=== PATIENT | female | born 1995 | race Caucasian/White ===

== ENCOUNTER 2017-04-08 17:52 | Emergency (ER) | payer SELFPAY ==
[2017-04-08 18:02] VITALS: BMI 20.9
[2017-04-08 18:08] VITALS: TEMP 98.7
--- NOTE | 2017-04-08 19:17 | ED PDOC ---
Arrival/HPI - General Historian: Patient - General Chief Complaint: Dizziness/Lightheaded Time Seen by Provider: 04/08/17 19:11 - History of Present Illness Narrative History of Present Illness (Text): 04/08/17 19:12 22 y/o female, no significant pmh, nkda, LMP , , c/o just noted to have positive at home and stated that she has been feeling nauseous and fatigue x 1 day. Pt. stated that she has no vaginal bleeding or discharge, no pelvic pain, no abdominal pain, no palpitation, no vaginal bleeding or discharge, no rash, no numbness or tingling, no coughing, no flank pain, no other medical or psychological complaints. (Mickey Phillips) Past Medical History - Provider Review Nursing Documentation Reviewed: Yes - Infectious Disease Hx of Infectious Diseases: None - Psychiatric Hx Substance Use: No Family/Social History - Physician Review Nursing Documentation Reviewed: Yes Family/Social History: Unknown Family HX Smoking Status: Never Smoked Hx Alcohol Use: No Hx Substance Use: No Allergies/Home Meds Allergies/Adverse Reactions: Allergies No Known Allergies Allergy (Verified 04/08/17 18:02) Review of Systems - Review of Systems Constitutional: Fatigue. absent: Fevers Eyes: absent: Vision Changes ENT: absent: Hearing Changes Respiratory: absent: SOB, Cough Cardiovascular: absent: Chest Pain Gastrointestinal: absent: Abdominal Pain, Nausea, Vomiting Musculoskeletal: absent: Arthralgias, Back Pain Skin: absent: Rash, Pruritis Neurological: absent: Headache Psychiatric: absent: Anxiety, Depression Physical Exam Vital Signs Reviewed: Yes Temperature: Afebrile Blood Pressure: Normal Pulse: Regular Respiratory Rate: Normal Appearance: Positive for: Well-Appearing, Non-Toxic, Comfortable Pain Distress: None Mental Status: Positive for: Alert and Oriented X 3 - Systems Exam Head: Present: Atraumatic, Normocephalic Pupils: Present: PERRL Extroacular Muscles: Present: EOMI Conjunctiva: Present: Normal Mouth: Present: Moist Mucous Membranes Neck: Present: Normal Range of Motion Respiratory/Chest: Present: Clear to Auscultation, Good Air Exchange. No: Respiratory Distress, Accessory Muscle Use Cardiovascular: Present: Regular Rate and Rhythm, Normal S1, S2. No: Murmurs Abdomen: Present: Normal Bowel Sounds. No: Tenderness, Distention, Peritoneal Signs, Rebound, Guarding Back: Present: Normal Inspection Upper Extremity: Present: Normal Inspection. No: Cyanosis, Edema Lower Extremity: Present: Normal Inspection. No: Edema Neurological: Present: GCS=15, Speech Normal, Motor Func Grossly Intact, Gait Normal, Memory Normal Skin: Present: Warm, Dry, Normal Color. No: Rashes Psychiatric: Present: Alert, Oriented x 3, Normal Insight, Normal Concentration Vital Signs Temp Pulse Resp BP Pulse Ox 04/08/17 20:29 76 18 121/70 99 04/08/17 17:54 98.7 F 92 H 16 113/75 97 Medical Decision Making ED Course and Treatment: 04/08/17 19:18 -labs/ua/rapid flu -observe and reassess 04/08/17 20:03 -Labs are non-significant -Beta HCG > 15,000 -UA show no UTI -Rapid flu screening is negative, clinically no signs of flu like symptoms and no URI symptoms, no bodyaches either. -Pt. feels well, eating and drinking well in the ER except feeling nauseous since , will give diclegis. -Discharge home with diclegis, follow up with your own pmd and obgyn within 2 days, return to the ER for any new or worsening signs or symptoms. (Mickey Phillips) - Lab Interpretations Lab Results: 04/08/17 18:30 04/08/17 18:30 Lab Results 04/08/17 18:30: Beta HCG, Quant 25298.00 H 04/08/17 18:30: Sodium 138, Potassium 3.8, Chloride 103, Carbon Dioxide 22, Anion Gap 17, BUN 8, Creatinine 0.5 L, Est GFR ( Amer) > 60, Est GFR (Non -Af Amer) > 60, Random Glucose 82, Calcium 10.0, Total Bilirubin 0.4, AST 29, ALT 27, Alkaline Phosphatase 40, Total Protein 8.1, Albumin 4.5, Globulin 3.6, Albumin/Globulin Ratio 1.3 04/08/17 18:30: Urine Color Yellow, Urine Appearance Clear, Urine pH 6.0, Ur Specific [place] >= 1.030, Urine Protein Trace H, Urine Glucose (UA) Negative, Urine Ketones 40 H, Urine Blood Trace-intact H, Urine Nitrate Negative, Urine Bilirubin Small H, Urine Urobilinogen 1.0 H, Ur Leukocyte Esterase Negative, Urine RBC 2 - 5, Urine WBC 0 - 2, Ur Epithelial Cells 4 - 5, Amorphous Sediment Few, Urine Bacteria Many 04/08/17 18:30: Influenza Typ A,B (EIA) Negative for flu a/b 04/08/17 18:30: WBC 10.2, RBC 4.43, Hgb 12.3, Hct 36.5, MCV 82.4, MCH 27.8, MCHC 33.7, RDW 13.6, Plt Count 222, MPV 12.0 H, Gran % 74.2 H, Lymph % (Auto) 18.2 L, [place] % (Auto) 7.3 H, Eos % (Auto) 0.2 L, Baso % (Auto) 0.1, Gran # 7.57 H, Lymph # 1.9, [place] # 0.7 H, Eos # 0.0, Baso # 0.01 - PA / [employer]UP EXPANDER / Resident Statement MD/DO has reviewed & agrees with the documentation as recorded. Disposition/Present on Arrival - Present on Arrival Any Indicators Present on Arrival: No History of DVT/PE: No History of Uncontrolled Diabetes: No Urinary Catheter: No History of Decub. Ulcer: No History Surgical Site Infection Following: None - Disposition Have Diagnosis and Disposition been Completed?: Yes Disposition Time: 19:18 Patient Plan: Discharge - Disposition Diagnosis: , Nauseous Disposition: HOME/ ROUTINE Condition: GOOD Additional Instructions: -Discharge home with diclegis, follow up with your own pmd and obgyn within 2 days, return to the ER for any new or worsening signs or symptoms. Prescriptions: Doxylamine/Pyridoxine HCl (B6) [Diclegis 10 mg-10 mg] 1 tcp PO QPM PRN #[id number] PRN Reason: Other Referrals: [facility] [place] [Outside] - Follow up with primary Kenzie Suazo MD [Staff Provider] - Follow up with primary Forms: WORK NOTE
[2017-04-08 19:48] LABS: BASO # 0.01 K/mm3 (0.0-2.0); BASO % 0.1 % (0.0-3.0); EOS % 0.2 % (1.5-5.0); GRAN # 7.57 (1.4-6.5); GRAN % 74.2 % (50.0-68.0); HEMOGLOBIN 12.3 g/dL (12.0-16.0); LYMPH # 1.9 (1.2-3.4); LYMPH % 18.2 % (22.0-35.0); MEAN CELL VOLUME 82.4 fl (80.0-105.0); MEAN CORPUSCULAR HEMOGLOBIN 27.8 pg (25.0-35.0); MEAN CORPUSCULAR HGB CONC 33.7 g/dl (31.0-37.0); MONO # 0.7 (0.1-0.6); MONO % 7.3 % (1.0-6.0); RBC 4.43 10^6/uL (3.5-6.1); RED CELL DISTRIBUTION WIDTH 13.6 % (11.5-14.5); URINE BILIRUBIN SMALL (NEGATIVE); URINE BLOOD TRACE-INTACT (NEGATIVE); URINE GLUCOSE (UA) NEGATIVE (NEGATIVE); URINE LEUKOCYTE ESTERASE NEGATIVE Leu/uL (NEGATIVE); URINE NITRATE NEGATIVE (NEGATIVE); URINE PROTEIN TRACE mg/dL (<30 mg/dL); WHITE BLOOD COUNT 10.2 10^3/ul (4.5-11.0)
[2017-04-08 19:51] LABS: URINE APPEARANCE CLEAR (CLEAR); URINE COLOR YELLOW (YELLOW)
[2017-04-08 19:54] LABS: URINE BACTERIA MANY (NEG); URINE WBC 0 - 2 /hpf (0-6)
[2017-04-08 19:55] LABS: URINE AMORPHOUS SEDIMENT FEW
[2017-04-08 19:58] LABS: ALB/GLOB RATIO 1.3 (1.1-1.8); ALBUMIN 4.5 g/dL (3.0-4.8); ALT/SGPT 27 U/L (7-56); AST/SGOT 29 U/L (14-36); BLOOD UREA NITROGEN 8 mg/dL (7-21); GFR AFRICAN-AMERICAN > 60; GFR NON-AFRICAN AMERICAN > 60
[2017-04-08 20:29] VITALS: BP 121/70; PULSE 76; RESP 18; O2SAT 99
== END 2017-04-08 20:33 | disposition home or self-care (01) ==
LOC: ED 17:52
DX: O26.891 Other specified pregnancy related conditions, first trimester (principal); R11.0 Nausea; Z3A.00 Weeks of gestation of pregnancy not specified

== ENCOUNTER 2017-04-26 04:54 | Emergency (ER) | payer SELFPAY ==
[2017-04-26 04:55] VITALS: BMI 20.9
--- NOTE | 2017-04-26 06:33 | ED PDOC ---
Arrival/HPI - General Chief Complaint: Female Genitourinary Time Seen by Provider: 04/26/17 06:16 Historian: Patient - History of Present Illness Narrative History of Present Illness (Text): 04/26/17 06:30 Radha Walsh is a 22 year old female, P:0, approximately 10 weeks , who presents to the ED accompanied by spouse of abdominal cramping with occasional bright red vaginal spotting today. Patient denies any vaginal spotting currently. Patient denies any fever, chills, vomiting, diarrhea, back pain, urinary symptoms, or any other complaints. states patient last saw her OBGYN 3 weeks prior, was told everything was fine, and placed on pre- vitamins. Time/Duration: Other (today) Symptom Onset: Gradual Symptom Course: Unchanged Activities at Onset: Light Context: Home Past Medical History - Provider Review Nursing Documentation Reviewed: Yes - Infectious Disease Hx of Infectious Diseases: None - Psychiatric Hx Substance Use: No Family/Social History - Physician Review Nursing Documentation Reviewed: Yes Family/Social History: Unknown Family HX Smoking Status: Never Smoked Hx Alcohol Use: No Hx Substance Use: No Allergies/Home Meds Allergies/Adverse Reactions: Allergies No Known Allergies Allergy (Verified 04/08/17 18:02) Home Medications: Home Meds Medication Instructions Recorded Confirmed No Known Home Med 04/26/17 04/26/17 Review of Systems - Physician Review All systems were reviewed & negative as marked: Yes - Review of Systems Constitutional: Normal. absent: Fevers Eyes: Normal ENT: Normal Respiratory: Normal. absent: SOB, Cough Cardiovascular: Normal. absent: Chest Pain Gastrointestinal: Abdominal Pain. absent: Diarrhea, Vomiting Genitourinary Female: Vaginal Bleeding. absent: Dysuria, Frequency, Hematuria, Urine Output Changes Musculoskeletal: Normal. absent: Back Pain, Neck Pain Skin: Normal. absent: Rash Neurological: Normal. absent: Headache, Dizziness Endocrine: Normal Hemo/Lymphatic: Normal Psychiatric: Normal Physical Exam Vital Signs Reviewed: Yes Vital Signs Temp Pulse Resp BP Pulse Ox 04/26/17 06:20 98.2 F 77 19 128/76 100 Temperature: Afebrile Blood Pressure: Normal Pulse: Regular Respiratory Rate: Normal Appearance: Positive for: Well-Appearing, Non-Toxic, Comfortable Pain Distress: None Mental Status: Positive for: Alert and Oriented X 3 - Systems Exam Head: Present: Atraumatic, Normocephalic Pupils: Present: PERRL Extroacular Muscles: Present: EOMI Conjunctiva: Present: Normal Mouth: Present: Moist Mucous Membranes Neck: Present: Normal Range of Motion Respiratory/Chest: Present: Clear to Auscultation, Good Air Exchange. No: Respiratory Distress, Accessory Muscle Use Cardiovascular: Present: Regular Rate and Rhythm, Normal S1, S2. No: Murmurs Abdomen: Present: Normal Bowel Sounds. No: Tenderness, Distention, Peritoneal Signs Back: Present: Normal Inspection Upper Extremity: Present: Normal Inspection. No: Cyanosis, Edema Lower Extremity: Present: Normal Inspection. No: Edema Neurological: Present: GCS=15, CN II-XII Intact, Speech Normal Skin: Present: Warm, Dry, Normal Color. No: Rashes Psychiatric: Present: Alert, Oriented x 3, Normal Insight, Normal Concentration Medical Decision Making ED Course and Treatment: 04/26/17 06:30 Impression: 22 year old female c/o abdominal cramping and intermittent vaginal spotting. Plan: -- Transvaginal US -- Labs, beta-HCG, blood type and screen -- UA -- Reassess Prior Visits: Notes and results from previous visits were reviewed. On 04/08/2017, pt was seen in the ED for nausea and fatigue. Pt was d/c home. Progress Notes: - RAD Interpretation Radiology Orders: 04/26/17 06:31 OB TRANSVAGINAL [US] Stat - Transfer of Care Patient signed out to Dr:: Eric Pending Labs:: Labs/Ultrasound/reassess/final disposition - Scribe Statement The provider has reviewed the documentation as recorded by the Scribray Albert All medical record entries made by the Scribe were at my direction and personally dictated by me. I have reviewed the chart and agree that the record accurately reflects my personal performance of the history, physical exam, medical decision making, and the department course for this patient. I have also personally directed, reviewed, and agree with the discharge instructions and disposition. Disposition/Present on Arrival - Present on Arrival Any Indicators Present on Arrival: No History of DVT/PE: No History of Uncontrolled Diabetes: No Urinary Catheter: No History of Decub. Ulcer: No History Surgical Site Infection Following: None - Disposition Have Diagnosis and Disposition been Completed?: No Diagnosis: , Abdominal pain Disposition Time: 07:00 Patient Problems: Current Active Problems Problem Status Onset Abdominal pain Acute Acute Condition: STABLE Forms: [employer] (Greek)
[2017-04-26 07:23] LABS: HEMOGLOBIN 11.9 g/dL (12.0-16.0); MEAN CELL VOLUME 81.8 fl (80.0-105.0); MEAN CORPUSCULAR HEMOGLOBIN 27.4 pg (25.0-35.0); MEAN CORPUSCULAR HGB CONC 33.5 g/dl (31.0-37.0); MEAN PLATELET VOLUME 12.3 fl (7.0-11.0); RBC 4.34 10^6/uL (3.5-6.1); RED CELL DISTRIBUTION WIDTH 13.7 % (11.5-14.5); WHITE BLOOD COUNT 8.1 10^3/ul (4.5-11.0)
[2017-04-26 07:36] LABS: ALB/GLOB RATIO 1.3 (1.1-1.8); ALBUMIN 4.7 g/dL (3.0-4.8); ALT/SGPT 60 U/L (7-56); AST/SGOT 45 U/L (14-36); BLOOD UREA NITROGEN 6 mg/dL (7-21); CALCIUM 10.5 mg/dL (8.4-10.5); GFR AFRICAN-AMERICAN > 60; GFR NON-AFRICAN AMERICAN > 60
[2017-04-26 07:39] LABS: INR 1.09 (0.93-1.08); PARTIAL THROMBOPLASTIN TIME 29.8 Seconds (25.1-36.5); PROTHROMBIN TIME 12.5 SECONDS (9.4-12.5)
--- NOTE | 2017-04-26 07:44 | ED PDOC ---
Physical Exam Vital Signs Reviewed: Yes Vital Signs Temp Pulse Resp BP Pulse Ox 04/26/17 06:20 98.2 F 77 19 128/76 100 Temperature: Afebrile Blood Pressure: Normal Pulse: Regular Respiratory Rate: Normal Appearance: Positive for: Well-Appearing, Non-Toxic, Comfortable Pain Distress: None Mental Status: Positive for: Alert and Oriented X 3 Medical Decision Making ED Course and Treatment: 04/26/17 07:44 Case signed out to me by Dr. Gastelum. Pending transvaginal US, labs, reassessment and final disposition. - Lab Interpretations Lab Results: 04/26/17 06:50 04/26/17 06:50 Lab Results 04/26/17 09:05: Blood Type Confirm A POSITIVE 04/26/17 08:20: Urine Color Yellow, Urine Appearance Clear, Urine pH 6.0, Ur Specific [place] 1.025, Urine Protein Negative, Urine Glucose (UA) Negative, Urine Ketones 40 H, Urine Blood Small H, Urine Nitrate Negative, Urine Bilirubin Negative, Urine Urobilinogen 0.2, Ur Leukocyte Esterase Negative, Urine RBC 5 - 10, Urine WBC 0 - 2, Ur Epithelial Cells 4 - 5, Amorphous Sediment Few, Urine Bacteria Many, Urine Other Fiber, Urine HCG, Qual Positive 04/26/17 06:50: Sodium 140, Potassium 3.8, Chloride 103, Carbon Dioxide 24, Anion Gap 17, BUN 6 L, Creatinine 0.5 L, Est GFR ( Amer) > 60, Est GFR ( Non-Af Amer) > 60, Random Glucose 71, Calcium 10.5, Total Bilirubin 0.3, AST 45 H D, ALT 60 H, Alkaline Phosphatase 43, Total Protein 8.4 H, Albumin 4.7, Globulin 3.7, Albumin/Globulin Ratio 1.3 04/26/17 06:50: Blood Type A POSITIVE, Antibody Screen Negative, BBK History Checked No verified bt 04/26/17 06:50: WBC 8.1 D, RBC 4.34, Hgb 11.9 L, Hct 35.5 L, MCV 81.8, MCH 27.4 , MCHC 33.5, RDW 13.7, Plt Count 209, MPV 12.3 H 04/26/17 06:50: Beta HCG, Quant [id number] H 04/26/17 06:50: PT 12.5, INR 1.09 H, APTT 29.8 I have reviewed the lab results: Yes - RAD Interpretation Radiology Orders: 04/26/17 10:05 OB , LIMITED [US] Stat - Scribe Statement The provider has reviewed the documentation as recorded by the Priteshibray hCandler Provider Scribe Attestation: All medical record entries made by the Scribe were at my direction and personally dictated by me. I have reviewed the chart and agree that the record accurately reflects my personal performance of the history, physical exam, medical decision making, and the department course for this patient. I have also personally directed, reviewed, and agree with the discharge instructions and disposition. Disposition/Present on Arrival - Present on Arrival Any Indicators Present on Arrival: No History of DVT/PE: No History of Uncontrolled Diabetes: No Urinary Catheter: No History of Decub. Ulcer: No History Surgical Site Infection Following: None - Disposition Have Diagnosis and Disposition been Completed?: Yes Diagnosis: , Threatened miscarriage in early Disposition: HOME/ ROUTINE Disposition Time: 11:10 Patient Plan: Discharge Patient Problems: Current Active Problems Problem Status Onset Abdominal pain Acute Acute Condition: STABLE Additional Instructions: see your OB doctor in [place], as scheduled. Forms: [employer] (Wolof)
[2017-04-26 08:36] LABS: URINE APPEARANCE CLEAR (CLEAR); URINE BILIRUBIN NEGATIVE (NEGATIVE); URINE BLOOD SMALL (NEGATIVE); URINE COLOR YELLOW (YELLOW); URINE GLUCOSE (UA) NEGATIVE (NEGATIVE); URINE LEUKOCYTE ESTERASE NEGATIVE Leu/uL (NEGATIVE); URINE NITRATE NEGATIVE (NEGATIVE); URINE PROTEIN NEGATIVE mg/dL (<30 mg/dL); URINE UROBILINOGEN 0.2 E.U./dL (<1 E.U./dL)
[2017-04-26 08:37] LABS: HCG,QUALITATIVE URINE POSITIVE (NEGATIVE)
[2017-04-26 08:44] LABS: URINE WBC 0 - 2 /hpf (0-6)
[2017-04-26 08:45] LABS: URINE AMORPHOUS SEDIMENT FEW; URINE BACTERIA MANY (NEG)
--- NOTE | 2017-04-26 10:58 | US ---
PROCEDURE: First trimester ultrasound HISTORY: Pain, bleeding COMPARISON: None available. TECHNIQUE: Standard protocol for this study/examination. FINDINGS: LMP: 02/19/2017. Prior examinations from the current : None. TECHNIQUE: Real-time 2D imaging, duplex and color Doppler. FINDINGS: Cardiac activity: Present Rate: 174 BPM Measurements: John Day rump length: 2.01 cm Gestational age based on CRL 8 weeks 4 days Gestational age 8 weeks 5 days based on gestational sac measurement 3.65 cm Gestational age derived from LMP: 9 weeks 3 days ALIA based on LMP: 11/26/2017. ALIA based on biometry: 12/01/2017. Gestational concordance documented Yolk sac identified Uterus: Unremarkable. No Cervical abnormalities: Negative examination for cervical dilatation or effacement. Closed cervix measuring cm Subchorionic hemorrhage: None UTERUS: 5 4 x 8.3 x 11.7 cm. ADNEXA: Right: Not visualized. Left: 1.8 x 3.5 x 3.5 cm. Simple cyst 2.3 x 2.5 cm. Normal Doppler arterial waveform documented Fluid in the cul-de-sac: None. IMPRESSION: Eight weeks 5 days live intrauterine gestation. Gestational concordance documented.
[2017-04-26 11:29] VITALS: BP 112/72; PULSE 84; RESP 17; TEMP 98.1; O2SAT 100
== END 2017-04-26 12:18 | disposition home or self-care (01) ==
LOC: ED 04:54
DX: O26.91 Pregnancy related conditions, unspecified, first trimester (principal); R10.9 Unspecified abdominal pain; Z3A.08 8 weeks gestation of pregnancy